=== PATIENT | female | born 1930 | race Caucasian/White ===

== ENCOUNTER → 2018-02-11 | Outpatient (CLI) | payer MEDICARE ==
[~2018-02-11] MED LIST: CALC-1038 PO; DILT240C60 PO; GABA-529 PO; MULT-40 PO; PROP15DR OU; PROP225T3 PO; RIVA20TA PO; SIMV10TA6 PO; TRAM50TA4 PO
== END | disposition home or self-care (01) ==
LOC: SHCH 11:52
PROVIDERS: ATTEND Internal Medicine Cardiovascular Disease
DX: I48.0 Paroxysmal atrial fibrillation (principal); E78.5 Hyperlipidemia, unspecified; Z95.0 Presence of cardiac pacemaker
CPT/HCPCS: 93306

== ENCOUNTER → 2021-01-16 | Outpatient (CLI) | payer MEDICARE ==
[~2021-01-16] MED LIST changes: -DILT240C60 PO; +DILT240C98 PO; -SIMV10TA6 PO; +SIMV10TA97 PO
== END | disposition home or self-care (01) ==
LOC: SHCH 10:26
PROVIDERS: ATTEND Internal Medicine Cardiovascular Disease
DX: I08.3 Combined rheumatic disorders of mitral, aortic and tricuspid valves (principal); E78.5 Hyperlipidemia, unspecified; Z95.0 Presence of cardiac pacemaker; I51.7 Cardiomegaly
CPT/HCPCS: 93306; 93356